=== PATIENT | male | born 1960 | race Caucasian/White ===

== ENCOUNTER 2025-07-10 08:56 | Emergency (ER) | payer OTHER, SELFPAY ==
[2025-07-10 09:12] VITALS: BP 160/74; PULSE 113; RESP 18; TEMP 36.8; O2SAT 98
--- NOTE | 2025-07-10 09:39 | ED_ITS ---
HPI - Abdominal Pain General Chief Complaint: Abdominal Pain Stated Complaint: stomach pain patient presents to the [facility] accompanied by spouse with complaints of nausea, vomiting, diarrhea after eating last night. Patient noted that through the night he woke up several times with diarrhea and nausea with vomiting. Patient does report this morning the last for episodes of diarrhea have been significant amounts of bright red blood. Patient denies any history of abdominal problems or hemorrhoids. Denies any blood in vomit. Patient does note earlier this week did have an episode of constipation and was straining significantly but this was 3-4 days ago. Patient has had but normal bowel movement since then. No one else ill after eating last night and everyone did share food. Patient does report being on Trulicity and having intermittent episodes of acid reflux but nothing significant and requiring no medication for this. No history of colonoscopy. Denies fever, chills, body aches, headache, dizziness, testicular pain, testicular swelling, back pain, or urinary symptoms Related Data Home Medications ?Medication ?Instructions ?Recorded ?Confirmed ?Last Taken ?Type amlodipine 10 mg tablet mg 07/10/25 Unknown History aspirin 81 mg tablet 81 mg PO DAILY 07/10/2506/20 Unknown History dulaglutide 4.5 mg/0.5 mL mg subcut 07/10/25 Unknown History subcutaneous pen injector (Trulicity) enalapril maleate 20 mg tablet mg 07/10/25 Unknown Hi story hydrochlorothiazide 25 mg tablet mg 07/10/25 Unknown History metformin 500 mg tablet mg 07/10/25 Unknown History metoprolol succinate 200 mg mg PO 07/10/25 Unknown Hi story tablet,extended release 24 hr rosuvastatin 20 mg tablet mg 07/10/25 Unknown History Allergies Allergy/AdvReac Type Severity Reaction Status Date / Time tetanus and diphtheria Allergy Swelling Verified 07/10/25 09:23 toxoids Penicillins AdvReac Mild Other Verified 07/10/25 09:23 Review of Systems Constitutional: Constitutional: Reports as per HPI, Denies chills, Denies fatigue, Denies fever(s) and Denies weakness Eyes: Eyes: Reports no additional eye complaints Cardiovascular: Cardiovascular: Reports no additional cardiovascular complaints Respiratory: Respiratory: Reports no additional respiratory complaints Gastrointestinal: Gastrointestinal: Reports as per HPI, Reports abdominal pain, Reports bloating, Denies constipation, Denies heartburn, Reports diarrhea, Reports nausea and Reports vomiting Comments: several episodes bright red bleeding- significant amounts Genitourinary: Genitourinary: Reports as per HPI, Denies hematuria, Denies oliguria, Denies genital lesions, Denies dysuria, Denies penile discharge, Denies testicular pain, Denies urinary frequency and Denies urinary incontinence Musculoskeletal: Musculoskeletal: Reports as per HPI, Denies back pain and Denies myalgias Integumentary/Breasts: Skin/Breast: Reports as per HPI, Denies erythema, Denies rash and Denies skin ulcer Neurologic: Reports as per HPI, Denies vertigo, Denies dizziness, Denies syncope and Denies headache(s) Psychiatric: Psychiatric: Reports no additional psychiatric complaints Endocrine: Endocrine: Reports no additional endocrine complaints Hematologic/Lymphatic: Hematologic/Lymphatic: Reports no additional hematologic/lymphatic complaints Allergic/Immunologic: Allergic/Immunologic: Reports no additional allergic/immunologic complaints Exam Const: General: healthy appearing and no acute distress Nutritional Appearance: well nourished Orientation/consciousness: patient oriented x3 Limitations: no limitations Resp: Effort & Inspection: normal respiratory effort Auscultation: clear to auscultation bilaterally Cardio: Rate: regular rate Rhythm: regular rhythm GI: Inspection: non-distended GI Palp: Yes Soft to palpation, Yes Tenderness to palpation present (GI) (generalized ), No Guarding due to palpation present (GI), No Rigid due to palpation, No Hernia present, No Palpable mass present and No Rebound tenderness present Auscultation: normal bowel sounds : General: Yes bladder normal to palpation and Yes no CVA tenderness Back/Spine/Pelvis: Back: no CVA tenderness Skin: General skin exam: normal color Rashes: no rashes Wounds: no wounds Neuro: General: patient oriented x3 Speech: normal speech Gait exam (Neuro): Normal gait present Psych: Mental Status: mental status grossly normal Affect: normal affect Attitude: cooperative Course Course Level of Care: Express Care Visit Vital Signs Vital signs: Vital Signs Temperature 98.3 F 07/10/25 09:12 Pulse Rate 113 H 07/10/25 09:12 Respiratory Rate 18 07/10/25 09:12 Blood Pressure 160/74 H 07/10/25 09:12 Pulse Oximetry 98 07/10/25 09:12 Oxygen Delivery Room Air 07/10/25 09:12 Temperature 98.3 F 07/10/25 09:12 Pulse Rate 113 H 07/10/25 09:12 Respiratory Rate 18 07/10/25 09:12 Blood Pressure 160/74 H 07/10/25 09:12 Pulse Oximetry 98 07/10/25 09:12 Oxygen Delivery Room Air 07/10/25 09:12 MDM - Abdominal Pain MDM Narrative Medical decision making narrative: noted patient does have slightly improved symptoms but given the significant amount of bright red bleeding per rectum with diarrhea and generalized abdominal pain patient should be evaluated in the emergency room. Report called to [facility] ER physician patient to be transferred by private vehicle. Recommended patient to nothing to eat or drink until evaluated in the emergen cy room Differential Diagnosis Differential diagnosis: Likely acute appendicitis, calculus of kidney, constipation, diverticulitis, gastroenteritis, small bowel obstruction and other (GI bleeding ) Medical Records Attestation: I reviewed the patient's medical records. Discharge Plan Discharge Clinical Impression: Rectal bleeding, Abdominal pain Patient Disposition: Home Condition: Stable Instructions: Antibiotic Form Patient Language: Lithuanian Prescriptions: No Action metformin 500 mg tablet enalapril maleate 20 mg tablet metoprolol succinate 200 mg tablet extended release 24 hr PO amlodipine 10 mg tablet hydrochlorothiazide 25 mg tablet rosuvastatin 20 mg tablet Trulicity 4.5 mg/0.5 mL pen injector SUBCUT aspirin 81 mg tablet 81 mg PO DAILY Follow-up/Referrals: UNKNOWN,DOCTOR [Primary Care Provider] Time of Disposition: 09:44
== END 2025-07-10 09:39 | disposition short-term general hospital (02) ==
PROVIDERS: Emergency Provider Nurse Practitioner Family
DX: K62.5 Hemorrhage of anus and rectum (principal); R10.9 Unspecified abdominal pain; Z79.82 Long term (current) use of aspirin
CPT/HCPCS: 99212; G0463

== ENCOUNTER 2025-07-10 09:54 | Observation (INO) | payer OTHER, SELFPAY ==
--- NOTE | ~2025-07-10 | CT_ITS ---
CT abdomen pelvis w con Clinical History: abdominal pain bloody diarrhea . Comparison: None Technique: Axial images lung bases to symphysis pubis IV contrast information not listed in PACS Coronal, sagittal reformats CT images acquired with automatic exposure control for dose reduction DLP: 1195 mGy-cm Findings: Lung bases: Clear. Visualized heart and pericardium: Unremarkable. Liver: Enlarged. Steatosis. Gallbladder: Unremarkable. Spleen: Unremarkable. Pancreas: Unremarkable. Adrenal glands: Unremarkable. Kidneys: Right kidney- No hydronephrosis. No renal stones. Left kidney- No hydronephrosis. No renal stones. Distal esophagus/stomach: Mild distal esophageal wall thickening/esophagitis versus sliding hernia. Small bowel loops: Normal caliber and wall thickness. Colon: Diverticula. Diffuse wall thickening distal loops. Normal RLQ appendix. Nodes: No enlarged nodes. Peritoneum: No ascites. No free air. Urinary bladder: Unremarkable. Prostate: Unremarkable. Bones: No acute bony abnormality. Soft tissues: Unremarkable. Aorta: No aneurysm or dissection. Atherosclerotic disease. IVC: Unremarkable. Main portal vein/SMV/splenic vein: Patent. IMPRESSION: 1. Long segment colitis. Infectious and/or inflammatory. Reviewed, dictated and finalized at location R. [employer]MENT [employer]NAGER
[2025-07-10 10:02] VITALS: BP 157/82; PULSE 98; RESP 17; TEMP 36.4; O2SAT 97
[2025-07-10 10:28] VITALS: PULSE 103; O2SAT 96
[2025-07-10 10:33] LABS: Add Urine Microscopic? NO; Appearance Urine Clear (Clear); Glucose Urine UA 2+ mg/dL (Negative); Hematocrit 49.9 % (42.0-52.0); Hemoglobin 16.7 g/dL (14.0-18.0); Immature Granulocyte Percent A 0.5 % (0-0.5); Leukocyte Esterase Ur Negative LEU/UL (Negative); Lymphocytes Absolute Auto 1.40 K/mm3 (0.9-3.2); Mean Corpuscular HGB Conc 33.5 g/dl (32-36); Mean Corpuscular Hemoglobin 28.1 pg (26-34); Mean Corpuscular Volume 84.0 fl (80-100); Nitrate Urine Negative (Negative); Nucleated Red Blood Cells Absolute Auto 0.000 K/mm3 (0.0-0.012); Nucleated Red Blood Cells Perc 0.0 % (0.0-0.2); Platelet Count Result 259 k/mm3 (150-375); Red Blood Count 5.94 M/mm3 (4.6-6.20); Specific Grav Ur 1.031 (1.001-1.035); White Blood Count 22.7 K/mm3 (4.5-10.0)
[2025-07-10 10:56] LABS: Alanine Aminotransferase 57 U/L (6-50); Albumin Level 4.5 g/dL (3.5-5.1); Alkaline Phosphatase 53 U/L (38-126); Anion Gap 14 mmol/L (4-12); Aspartate Amino Transferase 39 U/L (17-59); Bilirubin,Total 0.5 mg/dL (0.2-1.3); Blood Urea Nitrogen 21 mg/dL (9-20); Calcium 9.9 mg/dL (8.4-10.2); Carbon Dioxide 22 mmol/L (22-30); Chloride 99 mmol/L (98-107); Estimated CRCL calculation 100 ml/min; Estimated Glomerular Filt Rate > 60; Glucose 207 mg/dL (65-110); Lipase 49 U/L (23-300); Potassium 3.5 mmol/L (3.4-5.0); Sodium 135 mmol/L (137-145); Total Protein 7.8 g/dL (6.3-8.2)
[2025-07-10] MEDS: SODIUM CHLORIDE 0.9% IV 1,000 ML 999 ML IV CONT ×3 (10:58→12:27)
[2025-07-10] MEDS: DICYCLOMINE HCL INJ 20 MG/2 ML VIAL IM (10:58)
--- NOTE | 2025-07-10 11:33 | ED_ITS ---
HPI - General Adult General Chief complaint: Abdominal Pain Stated complaint: abd pain Time Seen by Provider: 07/10/25 10:17 History of Present Illness HPI narrative: Patient is 62-year-old gentleman presents emergency department with chief complaint of abdominal pain and bloody stool patient reports that he is visiting from [place]. Patient states that he a lot a rich food and reports that he started having diarrhea yesterday evening had multiple bouts of diarrhea has vomited a couple of times feels as though his abdomen is full and crampy the patient also reports that he started having bloody diarrhea Related Data Home Medications ?Medication ?Instructions ?Recorded ?Confirmed ?Last Taken ?Type amlodipine 10 mg tablet 10 mg PO DAILY@0800 07/10/25 07/10/25 07/10/25 History aspirin 81 mg tablet 81 mg PO DAILY 07/10/2506/2007/09/25 History dulaglutide 4.5 mg/0.5 mL 4.5 mg subcut WEEKLY 5 07/10/25 07/05/25 History subcutaneous pen injector (Trulicity) enalapril maleate 20 mg tablet 40 mg PO Q24H 07/10/25 07/10/25 07/10/25 History hydrochlorothiazide 25 mg tablet 25 mg PO DAILY@0800 1 09/09/24 07/10/25 07/10/25 History metformin 500 mg tablet 1,000 mg PO BID 07/10/2507/10/25 History metoprolol succinate 200 mg 200 mg PO DAILY@0800 07/1007/10/25 07/10/25 History tablet,extended release 24 hr rosuvastatin 20 mg tablet 20 mg PO DAILY@1700 07/10/25 07/10/25 07/09/25 History Allergies Allergy/AdvReac Type Severity Reaction Status Date / Time tetanus and diphtheria Allergy Swelling Verified 07/10/25 09:55 toxoids Penicillins AdvReac Mild Other Verified 07/10/25 09:55 Review of Systems 2 Review of Systems: A 10 system review of systems was completed on the patient and is negative except for what is stated in the HPI. Nursing and ancillary documentation was reviewed. Exam 2 Narrative: GENERAL: Well-appearing, well-nourished, and in no acute distress. HEAD: Normocephalic, atraumatic. EYES: PERRLA and EOMI. ENT: Nares clear, no rhinorrhea or epistaxis. Mucous membranes moist. NECK: Supple. CHEST: Clear to auscultation. No respiratory distress. HEART: Regular rate and rhythm. No murmur heard. Normal peripheral pulses. ABDOMEN: Soft, nontender, nondistended, normal active bowel sounds. EXTREMITIES: Normal range of motion. No edema. SKIN: Warm, dry, no rash. NEURO: No focal deficits. Alert and oriented x3. PSYCH: Normal mood and affect. Course Vital Signs Vital signs: Vital Signs Temperature 36.4 C 07/10/25 10:02 Pulse Rate 98 07/10/25 10:02 Respiratory Rate 17 07/10/25 10:02 Blood Pressure 157/82 H 07/10/25 10:02 Pulse Oximetry 97 07/10/25 10:02 Temperature 36.4 C 07/10/25 10:02 Pulse Rate 71 07/10/25 12:01 Respiratory Rate 18 07/10/25 12:01 Blood Pressure 157/89 H 07/10/25 12:01 Pulse Oximetry 98 07/10/25 12:[address] [facility] Narrative Medical decision making narrative: Differential diagnosis colitis, diverticulitis, intra-abdominal abscess, Laboratory studies were obtained showed a white count of 22.7 CMP showed an anion gap of 14 BUN of 21 glucose 207 lactate was 4.1 bilirubin is normal at 0.5 lipase was normal at 49 urinalysis showed trace ketones CT scan of the abdomen pelvis showed 1. Long segment colitis. Infectious and/or inflammatory. Patient has a penicillin allergy and was started on cefepime and Flagyl 30 per kilos normal saline boluses were ordered for the patient Plan will be to admit the patient to the hospitalist for further care Vital Signs Vital Signs: Vital Signs Temperature 36.4 C 07/10/25 10:02 Pulse Rate 98 07/10/25 10:02 Respiratory Rate 17 07/10/25 10:02 Blood Pressure 157/82 H 07/10/25 10:02 Pulse Oximetry 97 07/10/25 10:02 Temperature 36.4 C 07/10/25 10:02 Pulse Rate 71 07/10/25 12:01 Respiratory Rate 18 07/10/25 12:01 Blood Pressure 157/89 H 07/10/25 12:01 Pulse Oximetry 98 07/10/25 12:01 Lab Data 07/10/25 10:20 07/10/25 10:20 Labs: Lab Results 07/10/25 07/10/25 Range/Units 10:20 11:03 WBC 22.7 H (4.5-10.0) K/mm3 RBC 5.94 (4.6-6.20) M/mm3 Hgb 16.7 (14.0-18.0) g/dL Hct 49.9 (42.0-52.0) % MCV 84.0 (80-100) fl MCH 28.1 (26-34) pg MCHC 33.5 (32-36) g/dl RDW 14.0 (11.5-14.5) % Plt Count 259 (150-375) k/mm3 MPV 9.4 (7.4-10.4) fl Immature Gran % (Auto) 0.5 (0-0.5) % Neut % (Auto) 87.1 H (45.5-73.1) % Lymph % (Auto) 6.2 L (18.3-44.2) % [place] % (Auto) 5.9 (2.6-8.5) % Eos % (Auto) 0.0 (0-4.4) % Baso % (Auto) 0.3 (0.2-1.2) % Lymph # (Auto) 1.40 (0.9-3.2) K/mm3 [place] # (Auto) 1.3 H (0.1-0.6) K/mm3 Eos # (Auto) 0.0 (0-0.3) K/mm3 Baso # (Auto) 0.1 (0.0-0.1) K/mm3 Abs Immat Gran (auto) 0.11 H (0.00-0.031) K/mm3 Absolute Neuts (auto) 19.7 H (1.3-6.7) K/mm3 Absolute Nucleated RBC 0.000 (0.0-0.012) K/mm3 Nucleated RBC % 0.0 (0.0-0.2) % Sodium 135 L (137-145) mmol/L Potassium 3.5 (3.4-5.0) mmol/L Chloride 99 (98-107) mmol/L Carbon Dioxide 22 (22-30) mmol/L Anion Gap 14 H (4-12) mmol/L BUN 21 H (9-20) mg/dL Creatinine 0.83 (0.7-1.3) mg/dL Estim Creat Clear Calc 100 ml/min Estimated GFR > 60 (59 - ) Glucose 207 H (65-110) mg/dL Lactic Acid 4.1 H* (0.7-2.0) mmol/L Calcium 9.9 (8.4-10.2) mg/dL Total Bilirubin 0.5 (0.2-1.3) mg/dL AST 39 (17-59) U/L ALT 57 H (6-50) U/L Alkaline Phosphatase 53 (38-126) U/L Total Protein 7.8 (6.3-8.2) g/dL Albumin 4.5 (3.5-5.1) g/dL Lipase 49 (23-300) U/L Urine Color Yellow (Yellow) Urine Appearance Clear (Clear) Urine pH 5.0 (5.0-9.0) Ur Specific [place] 1.031 (1.001-1.035) Urine Protein Negative (Negative) mg/dL Urine Glucose (UA) 2+ H (Negative) mg/dL Urine Ketones Trace H (Negative) mg/dL Ur Blood (Man) Negative (Negative) Urine Nitrate Negative (Negative) Urine Bilirubin Negative (Negative) Urine Urobilinogen 0.2 (<2.0) mg/dL Leukocyte Esterase Rfl Negative (Negative) EDWARD/UL Discharge Plan Discharge Clinical Impression: Colitis Patient Disposition: Still a Patient Condition: Stable Instructions: Antibiotic Form Patient Language: Prydeinig Prescriptions: No Action metformin 500 mg tablet 1,000 mg PO BID enalapril maleate 20 mg tablet 40 mg PO Q24H metoprolol succinate 200 mg tablet extended release 24 hr 200 mg PO DAILY@0800 amlodipine 10 mg tablet 10 mg PO DAILY@0800 hydrochlorothiazide 25 mg tablet 25 mg PO DAILY@0800 rosuvastatin 20 mg tablet 20 mg PO DAILY@1700 Trulicity 4.5 mg/0.5 mL pen injector 4.5 mg SUBCUT WEEKLY aspirin 81 mg tablet 81 mg PO DAILY Follow-up/Referrals: UNKNOWN,DOCTOR [Primary Care Provider] Time of Disposition: 12:04
[2025-07-10] MEDS: CEFEPIME 2 GM in SODIUM CHLORIDE 0.9% IV 50 ML 100 ML IVPB ×2 (11:51→21:42)
[2025-07-10 12:01] VITALS: BP 157/89; PULSE 71; RESP 18; O2SAT 98
--- NOTE | 2025-07-10 12:15 | P.HP_ITS ---
H&P: HPI History of Present Illness Date/Time: 07/10/25 12:15 Chief Complaint: Abdominal Pain, Blood in Stool Narrative: 64 y/o M with PMH of HTN, HLD, and DM presents here with abdominal pain and blood in his stool. The patient presents here from a local urgent care on 07/10 for further evaluation of a town pain and blood in his stool. He reports onset of symptoms yesterday (07/09). He describes the abdominal pain as diffuse, cramping/fullness, and nonradiating. Pain was accompanied by diarrhea. He reports since onset he has had approximately 4-5 stools. He describes these as large volume initially but have tapered down to smaller volumes. He reports he then developed bloody diarrhea around 2 a.m. which he described as bright red blood and fibrous. He reports accompanying abdominal fullness. Denies fever, chills, body aches. No prior history of hematochezia/melena. Not on anticoagulation, does take a daily ASA. Has never had a colonoscopy or Cologuard before, has been offered to him by his primary. Denies history of ulcerative colitis or Crohn's. No FH of colon cancer. Initial VS at presentation: 97.6? F, HR 98, R 17, 157/82, and 97% on RA. ED workup showed: WBC 22.7, no anemia, sodium 135, creatinine 0.83 and GFR >60, glucose 207, lactic 4.1, ALT 57, normal lipase, and UA showed 2+ glucose and trace ketones. CT of the abdomen/pelvis showed long segment colitis, infectious and/or inflammatory. Review of Systems Review of Systems: All systems reviewed & are unremarkable except as noted in HPI and below PMFSH Past Medical History Medical History DM2 (diabetes mellitus, type 2) HLD (hyperlipidemia) HTN (hypertension) Meds Home Medications and Allergies Home Medications ?Medication ?Instructions ?Recorded ?Confirmed ?Type amlodipine 10 mg tablet 10 mg PO DAILY@0800 07/10/25 07/10/25 History aspirin 81 mg tablet 81 mg PO DAILY 07/10/2506/20 History dulaglutide 4.5 mg/0.5 mL 4.5 mg subcut WEEKLY 5 07/10/25 History subcutaneous pen injector (Trulicity) enalapril maleate 20 mg tablet 40 mg PO Q24H 07/10/25 07/10/25 History hydrochlorothiazide 25 mg tablet 25 mg PO DAILY@0800 1 09/09/24 07/10/25 History metformin 500 mg tablet 1,000 mg PO BID 07/10/25 History metoprolol succinate 200 mg 200 mg PO DAILY@0800 07/1007/10/25 History tablet,extended release 24 hr rosuvastatin 20 mg tablet 20 mg PO DAILY@1700 07/10/25 07/10/25 History Allergies Allergy/AdvReac Type Severity Reaction Status Date / Time tetanus and diphtheria Allergy Swelling Verified 07/10/25 09:55 toxoids Penicillins AdvReac Mild Other Verified 07/10/25 09:55 Vital Signs Vital Signs - 24 hr 07/10/25 10:02 07/10/25 10:28 07/10/25 12:01 Temperature 97.6 F Pulse Rate 98 103 H 71 Respiratory Rate 17 18 Blood Pressure 157/82 H 157/89 H Pulse Oximetry 97 96 98 Exam Const: General: comfortable and no acute distress Other: , male, nontoxic appearance, obese body habitus HENMT: Face/Nose/Sinus: Normal nares present Mouth: Yes moist mucous membranes Eyes: General: appearance normal, both eyes and all related structures Sclera: sclerae normal Pupils: Equal, round and reactive pupils present EOM: EOMs intact bilaterally Resp: Effort & Inspection: normal respiratory effort Auscultation: clear to auscultation bilaterally Cardio: Rate: regular rate Rhythm: regular rhythm Other: S1-S2 present without murmur, rub, ectopy GI: Other: Abdomen full, currently nontender. Normoactive bowel sounds in all quadrants. Skin: General skin exam: normal color and no rashes or lesions noted Wounds: no wounds Neuro: Speech: normal speech Motor exam (neuro): 5/5 motor strength present throughout Sensory Exam: normal sensation Other: A&O x4 Extrem: General: normal to inspection Psych: Mental Status: mental status grossly normal Affect: normal affect Other: Good insight and judgment, very pleasant H&P: Results Labs Labs: Short CBC 07/10/25 Range/Units 10:20 WBC 22.7 H (4.5-10.0) K/mm3 Hgb 16.7 (14.0-18.0) g/dL Hct 49.9 (42.0-52.0) % Plt Count 259 (150-375) k/mm3 BMP 07/10/25 10:20 Sodium 135 L Potassium 3.5 Chloride 99 Carbon Dioxide 22 BUN 21 H Creatinine 0.83 Glucose 207 H Calcium 9.9 Liver Function 07/10/25 Range/Units 10:20 Total Bilirubin 0.5 (0.2-1.3) mg/dL AST 39 (17-59) U/L ALT 57 H (6-50) U/L Alkaline Phosphatase 53 (38-126) U/L Albumin 4.5 (3.5-5.1) g/dL Urine 07/10/25 Range/Units 10:20 Urine Color Yellow (Yellow) Urine Appearance Clear (Clear) Urine pH 5.0 (5.0-9.0) Ur Specific [place] 1.031 (1.001-1.035) Urine Protein Negative (Negative) mg/dL Urine Glucose (UA) 2+ H (Negative) mg/dL Assessment and Plan Assessment and plan (1) Sepsis: Qualifiers: Sepsis acute organ dysfunction status: without acute organ dysfunction Sepsis type: sepsis due to unspecified organism Qualified Code(s): A41.9 - Sepsis, unspecified organism Code(s): A41.9 - Sepsis, unspecified organism Status: Acute Assessment and Plan: Patient met sepsis criteria. HR greater than 90, WBC greater than 14. Initial lactic 4.1. No hypotension, renal failure, or hypoxia noted. Extremities well perfused on exam. Imaging/workup concerning for colitis. - lactic 4.1, trend down and at procalcitonin - review UA, no indicators of infection - WBC 22.7 upon admission, trend - 2L bolus given in ED, give 3rd L at 100 mL/hr - started on broad spectrum antibiotics for colitis: Cefepime and Flagyl - blood cultures obtained on 07/10, follow - monitor hemodynamic stability (2) Colitis: Code(s): K52.9 - Noninfective gastroenteritis and colitis, unspecified Status: Acute Assessment and Plan: Reports general improvement since arrival with IV fluids and medications in the ED. - CT abd/pelvis: Long segment colitis. Infectious and/or inflammatory. - started on Cefepime + Metronidazole on 07/10, continued inpatient - IV fluids: 2L bolus, now on 100 mL/hr x1L - clear liquid diet - pain medication prn - daily clinical reassessment for improvement - accompanying blood in stool, see below (3) Rectal bleeding: Code(s): K62.5 - Hemorrhage of anus and rectum Status: Acute Assessment and Plan: Reported rectal bleeding with onset within the last 24 hours. No previous history of melena/hematochezia. Last colonoscopy? Hemoglobin currently stable. Hemodynamically stable. Suspect new rectal bleeding secondary to colitis, however patient has long segment colitis. - check coags - monitor H/H, trasnfuse if <7 - GI consulted (4) DM2 (diabetes mellitus, type 2): Qualifiers: Diabetes mellitus complication status: with hyperglycemia Diabetes mellitus long filler cigar roller machine insulin use: without long filler cigar roller machine use Qualified Code(s): E11.65 - Type 2 diabetes mellitus with hyperglycemia Code(s): E11.9 - Type 2 diabetes mellitus without complications Status: Chronic Assessment and Plan: - hypoglycemia protocol - POC blood glucose ACHS - home medication: Hold metformin in case of need for contrast - correct regimen ordered - high dose TIDWM, based off BMI (5) HTN (hypertension): Qualifiers: Hypertension type: primary hypertension Qualified Code(s): I10 - Essential (primary) hypertension Code(s): I10 - Essential (primary) hypertension Status: Chronic Assessment and Plan: - chronic, currently 157/89, stable. - continue home medications: Amlodipine, enalapril, hydrochlorothiazide, metoprolol - monitor Plan Diet: clear liquid GI Prophylaxis: pantoprazole IV daily DVT Prophylaxis: SCDs IV fluids: 2L -> 100 mL/hr x1L Lines/Tubes: pIV Code Status: full code Quality VTE Prophylaxis VTE prophylaxis: mechanical ordered Hospitalist [facility] Advance Care Plan I have confirmed that the patient's Advanced Care Plan is present, code status is documented, or surrogate decision maker is listed in patient medical record.: Yes Medication Reconciliation I have utilized all available resources to obtain, update and review the patients current medications (includes all prescriptions, OTC, herbals, cannabis, and nutritional supplements).: Yes
[2025-07-10] MEDS: metroNIDAZOLE 500 MG/ISO 100ML 500 MG/100 ML BAG 100 MG IVPB ×2 (12:28→22:48)
[2025-07-10 12:30] LABS: Magnesium 1.7 mg/dL (1.6-2.3)
[2025-07-10] MEDS: PANTOPRAZOLE SODIUM IV 40 MG VIAL IV PUSH (13:00)
[2025-07-10 13:01] LABS: INR 0.9; Partial Thromboplastin Time 23.6 Seconds (22.3-36.8); Prothrombin Time 12.8 Seconds (11.1-14.7)
[2025-07-10 13:07] VITALS: BP 146/80; PULSE 83; RESP 19; O2SAT 97
--- NOTE | 2025-07-10 13:08 | WPCEDHO ---
ED Hand Off Checklist All vitals saved:y IV Site documented:y All med administrations documented:y Triage Note Triage Note Pt to the ED from urgent care 07/10/25 09:57 with c/o abd pain and blood in stool. Pt states he had n/v/d last night and had blood in his stool this morning. Allergies tetanus and diphtheria toxoids Allergy (Verified 07/10/25 09:55) Swelling Penicillins Adverse Reaction (Mild, Verified 07/10/25 09:55) Other familail rxn Active Medications including assessments/comments Insulin Aspart (Insulin Aspart (*Bkc) 100 Units/Ml) 4 - 8 units SUB-Q TIDWM [facility]; Protocol Last Admin: 07/10/25 12:46 Dose: Not Given Documented By: WALE Non-Admin Reason: blood glucose 151 MAR Blood Glucose Document 07/10/25 12:46 WALE (Rec: 07/10/25 12:46 WALE [id number]) Bedside Glucose Verified Glucose Results Yes Verified Pantoprazole Sodium (Pantoprazole Sodium Iv 40 Mg Vial) 40 mg IV PUSH QAM [facility] Last Admin: 07/10/25 13:00 Dose: 40 mg Documented By: WALE Administered/Completed Medications Discontinued Medications Dicyclomine HCl (Dicyclomine Hcl Inj 20 Mg/2 Ml Vial) 20 mg IM ONCE STA Stop: 07/10/25 10:41 Last Admin: 07/10/25 10:58 Dose: 20 mg Documented By: WALE Sodium Chloride (Normal Saline Iv) 1,000 mls @ 999 mls/hr IV CONT .Q1H1M STA Stop: 07/10/25 11:40 Last Infusion: 07/10/25 11:59 Dose: Infused Documented By: Admin: 07/10/25 10:58 Dose: 999 mls/hr Documented By: WALE Sodium Chloride (Normal Saline Iv) 1,000 mls @ 999 mls/hr IV CONT .Q1H1M STA Stop: 07/10/25 12:25 Last Infusion: 07/10/25 13:01 Dose: Infused Documented By: Admin: 07/10/25 11:51 Dose: 999 mls/hr Documented By: WALE Sodium Chloride (Normal Saline Iv) 1,000 mls @ 999 mls/hr IV CONT .Q1H1M STA Stop: 07/10/25 12:25 Last Admin: 07/10/25 12:27 Dose: 999 mls/hr Documented By: WALE Cefepime HCl 2 gm/ Sodium (Chloride) 50 mls @ 100 mls/hr IVPB ONCE STA Stop: 07/10/25 11:54 Last Infusion: 07/10/25 12:26 Dose: Infused Documented By: Admin: 07/10/25 11:51 Dose: 100 mls/hr Documented By: WALE Metronidazole (Flagyl 500 Mg/Iso Soln 100 Ml) 500 mg in 100 mls @ 100 mls/hr IVPB ONCE STA Stop: 07/10/25 12:24 Last Admin: 07/10/25 12:28 Dose: 100 mls/hr Documented By: WALE Interventions/Assessments IV / Saline Lock, Insert Start: 07/10/25 10:02 Freq: STAT Status: Active Protocol: Document 07/10/25 10:21 WALE (Rec: 07/10/25 10:21 WALE [id number]) IV Assessment Peripheral Access Left Forearm IV Catheter Access Initiated IV Insertion Date 07/10/25 IV Insertion Time 10:21 Catheter Gauge 18 IV Insertion 1 Attempts Ultrasound Used for No Placement IV Site Assessment WNL IV Care and WNL Maintenance PA: Gastrointestinal Assessment Start: 07/10/25 09:55 Freq: Status: Active Protocol: Document 07/10/25 12:01 WALE (Rec: 07/10/25 12:02 WALE [id number]) GI Assessment Gastrointestinal Blood in Stool,Cramping,Diarrhea,Nausea,Pain Symptoms Description Soft Flatus Present Last Vital Signs Temperature 97.6 F 07/10/25 10:02 Pulse Rate 83 07/10/25 13:07 Respiratory Rate 19 07/10/25 13:07 Pulse Oximetry 97 07/10/25 13:07 Blood Pressure 146/80 H 07/10/25 13:07 Blood Pressure Mean 102 07/10/25 13:07 Blood Pressure Position Sitting 07/10/25 10:02 Weight 113 kg 07/10/25 09:57 Last Result - Abnormals Only WBC 22.7 K/mm3 (4.5-10.0) H 07/10/25 10:20 Neut % (Auto) 87.1 % (45.5-73.1) H 07/10/25 10:20 Lymph % (Auto) 6.2 % (18.3-44.2) L 07/10/25 10:20 [place] # (Auto) 1.3 K/mm3 (0.1-0.6) H 07/10/25 10:20 Abs Immat Gran (auto) 0.11 K/mm3 (0.00-0.031) H 07/10/25 10:20 Absolute Neuts (auto) 19.7 K/mm3 (1.3-6.7) H 07/10/25 10:20 Sodium 135 mmol/L (137-145) L 07/10/25 10:20 Anion Gap 14 mmol/L (4-12) H 07/10/25 10:20 BUN 21 mg/dL (9-20) H 07/10/25 10:20 Glucose 207 mg/dL (65-110) H 07/10/25 10:20 POC Capillary Glucose 151 mg/dl (65-105) H 07/10/25 12:45 Lactic Acid 4.1 mmol/L (0.7-2.0) H* 07/10/25 11:03 ALT 57 U/L (6-50) H 07/10/25 10:20 Urine Glucose (UA) 2+ mg/dL (Negative) H 07/10/25 10:20 Urine Ketones Trace mg/dL (Negative) H 07/10/25 10:20 Most Recent Suicide Severity Rating Suicide Severity Rating NO RISK INDICATED 07/10/25 09:57
[2025-07-10 13:12] LABS: Procalcitonin 0.1 ng/mL
--- NOTE | 2025-07-10 13:46 | ADMGEN ---
This patient, Nomi Mohr, was admitted to Medical Room 340-01. Patient/family oriented to hospital policies and general routines including ID bracelet, bed and alarms, visiting hours, pain management, procedures, bathroom and other care routines, personal items, smoking policy, room service/diet, and visiting hours. Information on how to activate the Rapid Response Team has been discussed. Patient/Family are encouraged to report perceived risks to care and to ask questions if they do not understand what they are told or what they should do.
[2025-07-10 14:06] VITALS: BP 157/77; PULSE 82; RESP 20; TEMP 37.1; O2SAT 99; BMI 36.8
[2025-07-10] MEDS: LACTATED RINGERS 1,000 ML 100 ML IV CONT (14:08)
--- NOTE | 2025-07-10 14:28 | WPDGICN ---
Assessment and Plan Assessment and plan (1) Colitis: Code(s): K52.9 - Noninfective gastroenteritis and colitis, unspecified Status: Acute Assessment and Plan: could be infectious or ischemic however he is already feeling much better right now continue with fluids, antibiotic empirically but get stool culture on liquid diet elevated lactic acid- will expect to normalize after medical treatment since he is already doing much better but monitor hopefully home tomorrow if better recommend to get colonoscopy in about 4 weeks after resolution of colitis, he will contact his PCP to get a referral since he is out of town will follow (2) Abdominal pain: Code(s): R10.9 - Unspecified abdominal pain Status: Acute (3) Rectal bleeding: Code(s): K62.5 - Hemorrhage of anus and rectum Status: Acute (4) Sepsis: Qualifiers: Sepsis type: sepsis due to unspecified organism Sepsis acute organ dysfunction status: without acute organ dysfunction Qualified Code(s): A41.9 - Sepsis, unspecified organism Code(s): A41.9 - Sepsis, unspecified organism Status: Acute (5) Leukocytosis: Code(s): D72.829 - Elevated white blood cell count, unspecified Status: Acute GI Consult Note Consult date/time: 07/10/25 14:28 Reason for consult: colitis HPI: Nomi Mohr is a 64 year old male with history of HTN, HLD, and DM here with new onset of abdominal pain and blood in his stool. He is from out of town visiting family for the holidays and they celebrated Thanksgiving with dinner then with abdominal cramping, diarrhea and n/v x1. He went to local urgent care but then noted blood in stools with more pain, describes as diffuse, cramping/fullness, and nonradiating. Also had abdominal fullness. Denies fever, chills, body aches. No previous history of gib or colitis, never had colonoscopy. ED workup showed: WBC 22.7, no anemia, sodium 135, creatinine 0.83, glucose 207, lactic 4.1, ALT 57, normal lipase, and UA showed 2+ glucose and trace ketones. CT of the abdomen/pelvis showed long segment colitis, infectious and/or inflammatory. Given iv fluids, abx and pain meds. Right now he is very comfortable, no more pain and doing better. Family at bedside. He is the only one sick in family. Review of Systems Constitutional: Constitutional: Denies chills Eyes: Eyes: Denies blurry vision ENT: Reports Normal hearing present Cardiovascular: Cardiovascular: Denies chest pain Respiratory: Respiratory: Denies cough Gastrointestinal: Gastrointestinal: Reports abdominal pain, Reports hematochezia, Reports nausea and Reports vomiting Genitourinary: Genitourinary: Denies dysuria Musculoskeletal: Musculoskeletal: Denies neck pain Integumentary/Breasts: Skin/Breast: Denies rash Neurologic: Denies Abnormal speech present Psychiatric: Psychiatric: Denies behavioral changes [facility] Past Medical History Medical History (Updated 07/10/25 @ 14:34 by Chintan Lizama MD) Leukocytosis DM2 (diabetes mellitus, type 2) HLD (hyperlipidemia) HTN (hypertension) Meds Home Medications and Allergies Home Medications ?Medication ?Instructions ?Recorded ?Confirmed ?Type amlodipine 10 mg tablet 10 mg PO DAILY@0800 07/10/25 07/10/25 History aspirin 81 mg tablet 81 mg PO DAILY 07/10/25 07/10/25 History dulaglutide 4.5 mg/0.5 mL 4.5 mg subcut WEEKLY 07/10/25 07/10/25 History subcutaneous pen injector (Trulicity) enalapril maleate 20 mg tablet 40 mg PO Q24H 07/10/25 07/10/25 History hydrochlorothiazide 25 mg tablet 25 mg PO DAILY@0800 07/10/25 07/10/25 History metformin 500 mg tablet 1,000 mg PO BID 07/10/25 07/10/25 History metoprolol succinate 200 mg 200 mg PO DAILY@0800 07/10/25 07/10/25 History tablet,extended release 24 hr rosuvastatin 20 mg tablet 20 mg PO DAILY@1700 07/10/25 07/10/25 History Allergies Allergy/AdvReac Type Severity Reaction Status Date / Time tetanus and diphtheria Allergy Swelling Verified 07/10/25 14:22 toxoids Penicillins AdvReac Mild Other Verified 07/10/25 14:22 Vital Signs Vital Signs - 24 hr 07/10/25 10:02 07/10/25 10:28 07/10/25 12:01 Temperature 97.6 F Pulse Rate 98 103 H 71 Respiratory Rate 17 18 Blood Pressure 157/82 H 157/89 H Pulse Oximetry 97 96 98 07/10/25 13:07 07/10/25 14:06 Temperature 98.7 F Pulse Rate 83 82 Respiratory Rate 19 20 Blood Pressure 146/80 H 157/77 H Pulse Oximetry 97 99 Exam Const: General: comfortable and no acute distress HENMT: Face/Nose/Sinus: Normal nares present Eyes: General: appearance normal, both eyes and all related structures Neck: Neck: supple Resp: Auscultation: clear to auscultation bilaterally Cardio: Rate: regular rate Rhythm: regular rhythm GI: Inspection: non-distended GI Palp: Yes Soft to palpation and No Guarding due to palpation present (GI) Auscultation: normal bowel sounds Skin: General skin exam: normal color Neuro: Speech: normal speech Motor exam (neuro): 5/5 motor strength present throughout Extrem: General: normal to inspection Psych: Mental Status: mental status grossly normal Results Labs 07/10/25 10:20 07/10/25 10:20 Labs: Short CBC 07/10/25 Range/Units 10:20 WBC 22.7 H (4.5-10.0) K/mm3 Hgb 16.7 (14.0-18.0) g/dL Hct 49.9 (42.0-52.0) % Plt Count 259 (150-375) k/mm3 BMP 07/10/25 10:20 Sodium 135 L Potassium 3.5 Chloride 99 Carbon Dioxide 22 BUN 21 H Creatinine 0.83 Glucose 207 H Calcium 9.9 Liver Function 07/10/25 Range/Units 10:20 Total Bilirubin 0.5 (0.2-1.3) mg/dL AST 39 (17-59) U/L ALT 57 H (6-50) U/L Alkaline Phosphatase 53 (38-126) U/L Albumin 4.5 (3.5-5.1) g/dL Urine 07/10/25 Range/Units 10:20 Urine Color Yellow (Yellow) Urine Appearance Clear (Clear) Urine pH 5.0 (5.0-9.0) Ur Specific [place] 1.031 (1.001-1.035) Urine Protein Negative (Negative) mg/dL Urine Glucose (UA) 2+ H (Negative) mg/dL
[2025-07-10] MEDS: ROSUVASTATIN 20 MG TABLET PO (17:20)
[2025-07-10] MEDS: HYDROcodone/acetaminophen (*CRX) 5-325 MG TABLET 1 TAB PO (20:13)
[2025-07-10 20:18] VITALS: BP 151/81; PULSE 75; RESP 18; TEMP 36.8; O2SAT 97
[2025-07-11 04:59] VITALS: BP 142/81; PULSE 74; RESP 18; TEMP 36.9; O2SAT 96
[2025-07-11] MEDS: metroNIDAZOLE 500 MG/ISO 100ML 500 MG/100 ML BAG 100 MG IVPB (05:03)
[2025-07-11 05:19] LABS: Hematocrit 43.8 % (42.0-52.0); Hemoglobin 14.7 g/dL (14.0-18.0); Immature Granulocyte Percent A 0.6 % (0-0.5); Lymphocytes Absolute Auto 1.95 K/mm3 (0.9-3.2); Mean Corpuscular HGB Conc 33.6 g/dl (32-36); Mean Corpuscular Hemoglobin 28.3 pg (26-34); Mean Corpuscular Volume 84.4 fl (80-100); Nucleated Red Blood Cells Absolute Auto 0.000 K/mm3 (0.0-0.012); Nucleated Red Blood Cells Perc 0.0 % (0.0-0.2); Platelet Count Result 216 k/mm3 (150-375); Red Blood Count 5.19 M/mm3 (4.6-6.20); White Blood Count 16.1 K/mm3 (4.5-10.0)
[2025-07-11 05:36] LABS: Alanine Aminotransferase 28 U/L (6-50); Albumin Level 3.4 g/dL (3.5-5.1); Alkaline Phosphatase 46 U/L (38-126); Anion Gap 7 mmol/L (4-12); Aspartate Amino Transferase 20 U/L (17-59); Bilirubin,Total 0.9 mg/dL (0.2-1.3); Blood Urea Nitrogen 10 mg/dL (9-20); Calcium 8.9 mg/dL (8.4-10.2); Carbon Dioxide 26 mmol/L (22-30); Chloride 99 mmol/L (98-107); Estimated CRCL calculation 112 ml/min; Estimated Glomerular Filt Rate > 60; Glucose 137 mg/dL (65-110); Magnesium 1.7 mg/dL (1.6-2.3); Potassium 3.6 mmol/L (3.4-5.0); Sodium 132 mmol/L (137-145); Total Protein 6.3 g/dL (6.3-8.2)
[2025-07-11] MEDS: CEFEPIME 2 GM in SODIUM CHLORIDE 0.9% IV 50 ML 100 ML IVPB (06:37)
--- NOTE | 2025-07-11 07:25 | P.PNIM_ITS ---
Progress Note: A&P Assessment and Plan (1) Sepsis: Qualifiers: Sepsis type: sepsis due to unspecified organism Sepsis acute organ dysfunction status: without acute organ dysfunction Qualified Code(s): A41.9 - Sepsis, unspecified organism Code(s): A41.9 - Sepsis, unspecified organism Status: Acute Assessment and Plan: Patient met sepsis criteria. HR greater than 90, WBC greater than 14. Initial lactic 4.1. No hypotension, renal failure, or hypoxia noted. Extremities well perfused on exam. Imaging/workup concerning for colitis. * Lactic acid improving, 4.1 -> 3.2 * UA not indicative of infection * 2L bolus given in ED, give 3rd L at 100 mL/hr * started on broad spectrum antibiotics for colitis: Cefepime and Flagyl * blood cultures obtained on 07/10, follow * monitor hemodynamic stability * WBC improving, down from 22.7 -> 16.1 (2) Colitis: Code(s): K52.9 - Noninfective gastroenteritis and colitis, unspecified Status: Acute Assessment and Plan: Reports general improvement since arrival with IV fluids and medications in the ED. * CT abd/pelvis: Long segment colitis. Infectious and/or inflammatory. * started on Cefepime + Metronidazole on 07/10, continued inpatient * IV fluids: 2L bolus, now on 100 mL/hr x1L * clear liquid diet * pain medication prn * daily clinical reassessment for improvement * accompanying blood in stool, see below * GI consulted (3) Rectal bleeding: Code(s): K62.5 - Hemorrhage of anus and rectum Status: Inactive Assessment and Plan: Reported rectal bleeding with onset within the last 24 hours. No previous history of melena/hematochezia. Last colonoscopy? Hemoglobin currently stable. Hemodynamically stable. Suspect new rectal bleeding secondary to colitis, however patient has long segment colitis. 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 technician use Diabetes mellitus complication status: with hyperglycemia Qualified Code(s): E11.65 - Type 2 diabetes mellitus with hyperglycemia Code(s): E11.9 - Type 2 diabetes mellitus without complications Status: Chronic Assessment and Plan: - hypoglycemia protocol - POC blood glucose ACHS - home medication: Hold metformin in case of need for contrast - correct regimen ordered - high dose TIDWM, based off BMI (5) HTN (hypertension): Qualifiers: Hypertension type: primary hypertension Qualified Code(s): I10 - Essential (primary) hypertension Code(s): I10 - Essential (primary) hypertension Status: Chronic Assessment and Plan: - chronic, currently 157/89, stable. - continue home medications: Amlodipine, enalapril, hydrochlorothiazide, metoprolol - monitor Plan Diet: clear liquid GI Prophylaxis: pantoprazole IV daily DVT Prophylaxis: SCDs IV fluids: 2L -> 100 mL/hr x1L Lines/Tubes: pIV Code Status: full code Subjective Date/time seen: 07/11/25 07:25 Interval history: 64 y/o M with PMH of HTN, HLD, and DM presents here with abdominal pain and blood in his stool. 07/11/2025 Review of Systems Review of Systems: All systems reviewed & are unremarkable except as noted in HPI and below Exam Const: General: comfortable and no acute distress Other: , male, nontoxic appearance, obese body habitus HENMT: Face/Nose/Sinus: Normal nares present Mouth: Yes moist mucous membranes Eyes: General: appearance normal, both eyes and all related structures Sclera: sclerae normal Pupils: Equal, round and reactive pupils present EOM: EOMs intact bilaterally Resp: Effort & Inspection: normal respiratory effort Auscultation: clear to auscultation bilaterally Cardio: Rate: regular rate Rhythm: regular rhythm Other: S1-S2 present without murmur, rub, ectopy GI: Other: Abdomen full, currently nontender. Normoactive bowel sounds in all quadrants. Skin: General skin exam: normal color and no rashes or lesions noted Wounds: no wounds Neuro: Cranial nerves: Yes Equal, round and reactive pupils present Speech: normal speech Motor exam (neuro): 5/5 motor strength present throughout Sensory Exam: normal sensation Other: A&O x4 Extrem: General: normal to inspection Psych: Mental Status: mental status grossly normal Affect: normal affect Other: Good insight and judgment, very pleasant Objective Data Vital Signs Vital Signs: Vital Signs - 24 hr 07/10/25 10:02 07/10/25 10:28 07/10/25 12:01 Temperature 97.6 F Pulse Rate 98 103 H 71 Respiratory Rate 17 18 Blood Pressure 157/82 H 157/89 H Pulse Oximetry 97 96 98 Oxygen Delivery 07/10/25 13:07 07/10/25 14:06 07/10/25 20:00 Temperature 98.7 F Pulse Rate 83 82 Respiratory Rate 19 20 Blood Pressure 146/80 H 157/77 H Pulse Oximetry 97 99 Oxygen Delivery Room Air 07/10/25 20:18 07/11/25 04:59 Temperature 98.2 F 98.4 F Pulse Rate 75 74 Respiratory Rate 18 18 Blood Pressure 151/81 H 142/81 H Pulse Oximetry 97 96 Oxygen Delivery Intake/Output Intake/Output: Intake & Output 07/08/25 07/09/25 07/10/25 07/11/25 23:59 23:59 23:59 23:59 Intake Total 4300 250 Output Total 2 Balance 4300 248 Meds/Results Medications: Active Medications Generic Name Dose Route Start Last Admin Trade Name Freq PRN Reason Stop Dose Admin Acetaminophen 650 mg 07/10/25 12:14 Acetaminophen 325 Mg Tablet PO Q4H PRN Mild Pain (1-3) or Fever Hydrocodone Bitart/Acetaminophen 1 tab 07/10/25 12:14 07/10/25 20:13 Hydrocodone/Acetaminophen (*Crx) 5-325 Mg Tablet PO 1 tab Q4H PRN Administration Moderate Pain (4-6) Amlodipine Besylate 10 mg 07/11/25 08:00 Amlodipine Besylate 10 Mg Tablet PO DAILY@0800 [facility] Aspirin 81 mg 07/11/25 09:00 Aspirin 81 Mg Enteric Tablet PO QAM [facility] Dextrose 12.5 gm 07/10/25 12:33 Dextrose 50% 25 Gm/50 Ml Syringe IV PUSH PRN PRN Hypoglycemia Protocol Dicyclomine HCl 20 mg 07/10/25 12:15 Dicyclomine Hcl Inj 20 Mg/2 Ml Vial IM Q6H PRN Abdominal Cramping Enalapril Maleate 40 mg 07/11/25 09:00 Enalapril Maleate 10 Mg Tablet PO Q24H [facility] Glucagon 1 mg 07/10/25 12:33 Glucagon For Inj 1 Mg Vial IM PRN PRN Hypoglycemia Protocol Glucose 15 gm 07/10/25 12:33 Glucose Oral Gel 15 Gm Of Glucse In 37.5 Gm Tube PO PRN PRN Hypoglycemia Protocol Hydrochlorothiazide 25 mg 07/11/25 08:00 Hydrochlorothiazide 25 Mg Tablet PO DAILY@0800 [facility] Cefepime HCl 2 gm/ Sodium 50 mls @ 100 mls/hr 07/10/25 22:00 07/11/25 06:37 Chloride IVPB 100 mls/hr Q8H [facility] Administration Metronidazole 500 mg in 100 mls @ 100 mls/hr 07/10/25 22:00 07/11/25 05:03 Flagyl 500 Mg/Iso Soln 100 Ml IVPB 100 mls/hr Q8H [facility] Administration Dextrose 1,000 mls @ 100 mls/hr 07/10/25 12:33 Dextrose 5% 1,000 Ml IVPB PRN PRN Hypoglycemia Protocol Insulin Aspart 4 - 8 units 07/10/25 12:40 07/10/25 17:22 Insulin Aspart (*Bkc) 100 Units/Ml SUB-Q Not Given TIDWM [facility] Protocol Metoprolol Succinate 200 mg 07/11/25 08:00 Metoprolol Succinate Ext Rel 100 Mg Tabcr PO DAILY@0800 [facility] Morphine Sulfate 2 mg 07/10/25 12:14 Morphine Sulfate (*Crx) 4 Mg/Ml Inj IV PUSH Q4H PRN Pain Rated 7-10 Ondansetron HCl 4 mg 07/10/25 12:14 Ondansetron Inj 4 Mg/2 Ml Vial IV PUSH Q6H PRN Nausea And Vomiting Pantoprazole Sodium 40 mg 07/10/25 12:35 07/10/25 13:00 Pantoprazole Sodium Iv 40 Mg Vial IV PUSH 40 mg QAM [facility] Administration Rosuvastatin Calcium 20 mg 07/10/25 17:00 07/10/25 17:20 Rosuvastatin 20 Mg Tablet PO 20 mg DAILY@1700 [facility] Administration Radiology Results: ITS Impressions Abdomen/Pelvis CT 07/10/25 11:38 IMPRESSION: 1. Long segment colitis. Infectious and/or inflammatory. Labs Labs: Laboratory Results - last 24 hr 07/10/25 07/10/25 07/10/25 10:19 10:20 11:03 WBC 22.7 H RBC 5.94 Hgb 16.7 Hct 49.9 MCV 84.0 MCH 28.1 MCHC 33.5 RDW 14.0 Plt Count 259 MPV 9.4 Immature Gran % (Auto) 0.5 Neut % (Auto) 87.1 H Lymph % (Auto) 6.2 L [place] % (Auto) 5.9 Eos % (Auto) 0.0 Baso % (Auto) 0.3 Lymph # (Auto) 1.40 [place] # (Auto) 1.3 H Eos # (Auto) 0.0 Baso # (Auto) 0.1 Abs Immat Gran (auto) 0.11 H Absolute Neuts (auto) 19.7 H Absolute Nucleated RBC 0.000 Nucleated RBC % 0.0 PT 12.8 INR 0.9 APTT 23.6 Sodium 135 L Potassium 3.5 Chloride 99 Carbon Dioxide 22 Anion Gap 14 H BUN 21 H Creatinine 0.83 Estim Creat Clear Calc 100 Estimated GFR > 60 Glucose 207 H POC Capillary Glucose Lactic Acid 4.1 H* Calcium 9.9 Magnesium 1.7 Total Bilirubin 0.5 AST 39 ALT 57 H Alkaline Phosphatase 53 Total Protein 7.8 Albumin 4.5 Lipase 49 Procalcitonin 0.1 Urine Color Yellow Urine Appearance Clear Urine pH 5.0 Ur Specific [place] 1.031 Urine Protein Negative Urine Glucose (UA) 2+ H Urine Ketones Trace H Ur Blood (Man) Negative Urine Nitrate Negative Urine Bilirubin Negative Urine Urobilinogen 0.2 Leukocyte Esterase Rfl Negative 07/10/25 07/10/25 07/10/25 12:45 13:27 16:34 WBC RBC Hgb Hct MCV MCH MCHC RDW Plt Count MPV Immature Gran % (Auto) Neut % (Auto) Lymph % (Auto) [place] % (Auto) Eos % (Auto) Baso % (Auto) Lymph # (Auto) [place] # (Auto) Eos # (Auto) Baso # (Auto) Abs Immat Gran (auto) Absolute Neuts (auto) Absolute Nucleated RBC Nucleated RBC % PT INR APTT Sodium Potassium Chloride Carbon Dioxide Anion Gap BUN Creatinine Estim Creat Clear Calc Estimated GFR Glucose POC Capillary Glucose 151 H 113 H Lactic Acid 3.2 H Calcium Magnesium Total Bilirubin AST ALT Alkaline Phosphatase Total Protein Albumin Lipase Procalcitonin Urine Color Urine Appearance Urine pH Ur Specific [place] Urine Protein Urine Glucose (UA) Urine Ketones Ur Blood (Man) Urine Nitrate Urine Bilirubin Urine Urobilinogen Leukocyte Esterase Rfl 07/10/25 07/11/25 20:03 04:55 WBC 16.1 H RBC 5.19 Hgb 14.7 Hct 43.8 MCV 84.4 MCH 28.3 MCHC 33.6 RDW 14.0 Plt Count 216 MPV 9.9 Immature Gran % (Auto) 0.6 H Neut % (Auto) 78.4 H Lymph % (Auto) 12.1 L [place] % (Auto) 8.1 Eos % (Auto) 0.5 Baso % (Auto) 0.3 Lymph # (Auto) 1.95 [place] # (Auto) 1.3 H Eos # (Auto) 0.1 Baso # (Auto) 0.1 Abs Immat Gran (auto) 0.09 H Absolute Neuts (auto) 12.7 H Absolute Nucleated RBC 0.000 Nucleated RBC % 0.0 PT INR APTT Sodium 132 L Potassium 3.6 Chloride 99 Carbon Dioxide 26 Anion Gap 7 BUN 10 D Creatinine 0.73 Estim Creat Clear Calc 112 Estimated GFR > 60 Glucose 137 H POC Capillary Glucose 186 H Lactic Acid Calcium 8.9 Magnesium 1.7 Total Bilirubin 0.9 AST 20 ALT 28 Alkaline Phosphatase 46 Total Protein 6.3 Albumin 3.4 L Lipase Procalcitonin Urine Color Urine Appearance Urine pH Ur Specific [place] Urine Protein Urine Glucose (UA) Urine Ketones Ur Blood (Man) Urine Nitrate Urine Bilirubin Urine Urobilinogen Leukocyte Esterase Rfl Quality VTE Prophylaxis VTE prophylaxis: mechanical ordered
[2025-07-11 08:50] VITALS: PULSE 76
[2025-07-11] MEDS: METOPROLOL SUCCINATE EXT REL 100 MG TABCR 200 MG PO (08:50)
[2025-07-11] MEDS: PANTOPRAZOLE SODIUM IV 40 MG VIAL IV PUSH (08:50)
[2025-07-11] MEDS: ENALAPRIL MALEATE 10 MG TABLET 40 MG PO (08:50)
[2025-07-11] MEDS: ASPIRIN 81 MG ENTERIC TABLET PO (08:51)
--- NOTE | 2025-07-11 12:15 | WPDGIPROGNO ---
Progress Note: A&P Assessment and Plan (1) Colitis: Code(s): K52.9 - Noninfective gastroenteritis and colitis, unspecified Status: Acute Assessment and Plan: differential ischemic vs infectious but regardless he is much better wbc trending down lactic acidosis normalized after fluids he can go home with oral abx, pending cultures he will monitor and come back if anything changes also will contact pcp to get colonoscopy in 3-4 weeks (2) Leukocytosis: Code(s): D72.829 - Elevated white blood cell count, unspecified Status: Acute (3) Sepsis: Qualifiers: Sepsis type: sepsis due to unspecified organism Sepsis acute organ dysfunction status: without acute organ dysfunction Qualified Code(s): A41.9 - Sepsis, unspecified organism Code(s): A41.9 - Sepsis, unspecified organism Status: Acute Assessment and Plan: resolved (4) Rectal bleeding: Code(s): K62.5 - Hemorrhage of anus and rectum Status: Inactive (5) Abdominal pain: Code(s): R10.9 - Unspecified abdominal pain Status: Inactive Subjective Date/time seen: 07/11/25 12:15 Interval history: last BM still with some blood but overall improved tolerating liquid diet, pain is almost gone- feeling 100% better Review of Systems Review of Systems: All systems reviewed & are unremarkable except as noted in HPI and below Exam Const: General: comfortable and no acute distress HENMT: Face/Nose/Sinus: Normal nares present Eyes: General: appearance normal, both eyes and all related structures Neck: Neck: no JVD Resp: Auscultation: clear to auscultation bilaterally Cardio: Rate: regular rate Rhythm: regular rhythm GI: Inspection: non-distended GI Palp: Yes Soft to palpation and No Tenderness to palpation present (GI) Auscultation: normal bowel sounds Skin: General skin exam: normal color Neuro: General: gait normal Speech: normal speech Extrem: General: normal to inspection Psych: Mental Status: mental status grossly normal Objective Data Vital Signs Vital Signs: Vital Signs - 24 hr 07/10/25 13:07 07/10/25 14:06 07/10/25 20:00 Temperature 98.7 F Pulse Rate 83 82 Respiratory Rate 19 20 Blood Pressure 146/80 H 157/77 H Pulse Oximetry 97 99 Oxygen Delivery Room Air 07/10/25 20:18 07/11/25 04:59 07/11/25 08:50 Temperature 98.2 F 98.4 F Pulse Rate 75 74 76 Respiratory Rate 18 18 Blood Pressure 151/81 H 142/81 H Pulse Oximetry 97 96 Oxygen Delivery Intake/Output Intake/Output: Intake & Output 07/08/25 07/09/25 07/10/25 07/11/25 23:59 23:59 23:59 23:59 Intake Total 4300 730 Output Total 2 Balance 4300 728 Meds/Results Medications: Active Medications Generic Name Dose Route Start Last Admin Trade Name Freq PRN Reason Stop Dose Admin Acetaminophen 650 mg 07/10/25 12:14 Acetaminophen 325 Mg Tablet PO Q4H PRN Mild Pain (1-3) or Fever Hydrocodone Bitart/Acetaminophen 1 tab 07/10/25 12:14 07/10/25 20:13 Hydrocodone/Acetaminophen (*Crx) 5-325 Mg Tablet PO 1 tab Q4H PRN Administration Moderate Pain (4-6) Amlodipine Besylate 10 mg 07/11/25 08:00 07/11/25 08:51 Amlodipine Besylate 10 Mg Tablet PO 10 mg DAILY@0800 MICHELLE Administration Aspirin 81 mg 07/11/25 09:00 07/11/25 08:51 Aspirin 81 Mg Enteric Tablet PO 81 mg QAM MICHELLE Administration Dextrose 12.5 gm 07/10/25 12:33 Dextrose 50% 25 Gm/50 Ml Syringe IV PUSH PRN PRN Hypoglycemia Protocol Dicyclomine HCl 20 mg 07/10/25 12:15 Dicyclomine Hcl Inj 20 Mg/2 Ml Vial IM Q6H PRN Abdominal Cramping Enalapril Maleate 40 mg 07/11/25 09:00 07/11/25 08:50 Enalapril Maleate 10 Mg Tablet PO 40 mg Q24H MICHELLE Administration Glucagon 1 mg 07/10/25 12:33 Glucagon For Inj 1 Mg Vial IM PRN PRN Hypoglycemia Protocol Glucose 15 gm 07/10/25 12:33 Glucose Oral Gel 15 Gm Of Glucse In 37.5 Gm Tube PO PRN PRN Hypoglycemia Protocol Hydrochlorothiazide 25 mg 07/11/25 08:00 07/11/25 08:51 Hydrochlorothiazide 25 Mg Tablet PO 25 mg DAILY@0800 MICHELLE Administration Cefepime HCl 2 gm/ Sodium 50 mls @ 100 mls/hr 07/10/25 22:00 07/11/25 06:37 Chloride IVPB 100 mls/hr Q8H MICHELLE Administration Metronidazole 500 mg in 100 mls @ 100 mls/hr 07/10/25 22:00 07/11/25 05:03 Flagyl 500 Mg/Iso Soln 100 Ml IVPB 100 mls/hr Q8H MICHELLE Administration Dextrose 1,000 mls @ 100 mls/hr 07/10/25 12:33 Dextrose 5% 1,000 Ml IVPB PRN PRN Hypoglycemia Protocol Insulin Aspart 4 - 8 units 07/10/25 12:40 07/11/25 11:41 Insulin Aspart (*Bkc) 100 Units/Ml SUB-Q Not Given TIDWM [facility] Protocol Metoprolol Succinate 200 mg 07/11/25 08:00 07/11/25 08:50 Metoprolol Succinate Ext Rel 100 Mg Tabcr PO 200 mg DAILY@0800 [facility] Administration Morphine Sulfate 2 mg 07/10/25 12:14 Morphine Sulfate (*Crx) 4 Mg/Ml Inj IV PUSH Q4H PRN Pain Rated 7-10 Ondansetron HCl 4 mg 07/10/25 12:14 Ondansetron Inj 4 Mg/2 Ml Vial IV PUSH Q6H PRN Nausea And Vomiting Pantoprazole Sodium 40 mg 07/10/25 12:35 07/11/25 08:50 Pantoprazole Sodium Iv 40 Mg Vial IV PUSH 40 mg QAM MICHELLE Administration Rosuvastatin Calcium 20 mg 07/10/25 17:00 07/10/25 17:20 Rosuvastatin 20 Mg Tablet PO 20 mg DAILY@1700 [facility] Administration Radiology Results: ITS Impressions Abdomen/Pelvis CT 07/10/25 11:38 IMPRESSION: 1. Long segment colitis. Infectious and/or inflammatory. Labs Labs: Laboratory Results - last 24 hr 07/10/25 07/10/25 07/10/25 10:19 10:20 12:45 WBC RBC Hgb Hct MCV MCH MCHC RDW Plt Count MPV Immature Gran % (Auto) Neut % (Auto) Lymph % (Auto) [place] % (Auto) Eos % (Auto) Baso % (Auto) Lymph # (Auto) [place] # (Auto) Eos # (Auto) Baso # (Auto) Abs Immat Gran (auto) Absolute Neuts (auto) Absolute Nucleated RBC Nucleated RBC % PT 12.8 INR 0.9 APTT 23.6 Sodium Potassium Chloride Carbon Dioxide Anion Gap BUN Creatinine Estim Creat Clear Calc Estimated GFR Glucose POC Capillary Glucose 151 H Lactic Acid Calcium Magnesium 1.7 Total Bilirubin AST ALT Alkaline Phosphatase Total Protein Albumin Procalcitonin 0.1 07/10/25 07/10/25 07/10/25 13:27 16:34 20:03 WBC RBC Hgb Hct MCV MCH MCHC RDW Plt Count MPV Immature Gran % (Auto) Neut % (Auto) Lymph % (Auto) [place] % (Auto) Eos % (Auto) Baso % (Auto) Lymph # (Auto) [place] # (Auto) Eos # (Auto) Baso # (Auto) Abs Immat Gran (auto) Absolute Neuts (auto) Absolute Nucleated RBC Nucleated RBC % PT INR APTT Sodium Potassium Chloride Carbon Dioxide Anion Gap BUN Creatinine Estim Creat Clear Calc Estimated GFR Glucose POC Capillary Glucose 113 H 186 H Lactic Acid 3.2 H Calcium Magnesium Total Bilirubin AST ALT Alkaline Phosphatase Total Protein Albumin Procalcitonin 07/11/25 07/11/25 07/11/25 04:55 07:24 08:10 WBC 16.1 H RBC 5.19 Hgb 14.7 Hct 43.8 MCV 84.4 MCH 28.3 MCHC 33.6 RDW 14.0 Plt Count 216 MPV 9.9 Immature Gran % (Auto) 0.6 H Neut % (Auto) 78.4 H Lymph % (Auto) 12.1 L [place] % (Auto) 8.1 Eos % (Auto) 0.5 Baso % (Auto) 0.3 Lymph # (Auto) 1.95 [place] # (Auto) 1.3 H Eos # (Auto) 0.1 Baso # (Auto) 0.1 Abs Immat Gran (auto) 0.09 H Absolute Neuts (auto) 12.7 H Absolute Nucleated RBC 0.000 Nucleated RBC % 0.0 PT INR APTT Sodium 132 L Potassium 3.6 Chloride 99 Carbon Dioxide 26 Anion Gap 7 BUN 10 D Creatinine 0.73 Estim Creat Clear Calc 112 Estimated GFR > 60 Glucose 137 H POC Capillary Glucose 142 H Lactic Acid 1.3 Calcium 8.9 Magnesium 1.7 Total Bilirubin 0.9 AST 20 ALT 28 Alkaline Phosphatase 46 Total Protein 6.3 Albumin 3.4 L Procalcitonin 07/11/25 11:11 WBC RBC Hgb Hct MCV MCH MCHC RDW Plt Count MPV Immature Gran % (Auto) Neut % (Auto) Lymph % (Auto) [place] % (Auto) Eos % (Auto) Baso % (Auto) Lymph # (Auto) [place] # (Auto) Eos # (Auto) Baso # (Auto) Abs Immat Gran (auto) Absolute Neuts (auto) Absolute Nucleated RBC Nucleated RBC % PT INR APTT Sodium Potassium Chloride Carbon Dioxide Anion Gap BUN Creatinine Estim Creat Clear Calc Estimated GFR Glucose POC Capillary Glucose 138 H Lactic Acid Calcium Magnesium Total Bilirubin AST ALT Alkaline Phosphatase Total Protein Albumin Procalcitonin
[2025-07-11 13:49] VITALS: BP 145/81; PULSE 88; RESP 17; TEMP 37.5; O2SAT 97
--- NOTE | 2025-07-11 14:14 | P.DS_ITS ---
DS: Admitting Diagnosis Discharge Date 07/11/2025 Admitting Diagnosis colitis DS: Discharge Diagnosis Discharge Diagnosis (1) Sepsis: Qualifiers: Sepsis acute organ dysfunction status: without acute organ dysfunction Sepsis type: sepsis due to unspecified organism Qualified Code(s): A41.9 - Sepsis, unspecified organism Code(s): A41.9 - Sepsis, unspecified organism Status: Acute Assessment and Plan: Patient met sepsis criteria. HR greater than 90, WBC greater than 14. Initial lactic 4.1. No hypotension, renal failure, or hypoxia noted. Extremities well perfused on exam. Imaging/workup concerning for colitis. * Lactic acid improving, 4.1 -> 3.2 -> 1.3 * UA not indicative of infection * 2L bolus given in ED, give 3rd L at 100 mL/hr * started on broad spectrum antibiotics for colitis: Cefepime and Flagyl * blood cultures obtained on 07/10, follow * monitor hemodynamic stability * WBC improving, down from 22.7 -> 16.1 (2) Colitis: Code(s): K52.9 - Noninfective gastroenteritis and colitis, unspecified Status: Acute Assessment and Plan: Reports general improvement since arrival with IV fluids and medications in the ED. * CT abd/pelvis: Long segment colitis. Infectious and/or inflammatory. * started on Cefepime + Metronidazole on 07/10, continued inpatient * IV fluids: 2L bolus, now on 100 mL/hr x1L * clear liquid diet * pain medication prn * daily clinical reassessment for improvement * accompanying blood in stool, see below * GI consulted (3) Rectal bleeding: Code(s): K62.5 - Hemorrhage of anus and rectum Status: Inactive Assessment and Plan: Reported rectal bleeding with onset within the last 24 hours. No previous history of melena/hematochezia. Last colonoscopy? Hemoglobin currently stable. Hemodynamically stable. Suspect new rectal bleeding secondary to colitis, however patient has long segment colitis. * check coags * monitor H/H, trasnfuse if <7 * GI consulted (4) DM2 (diabetes mellitus, type 2): Qualifiers: Diabetes mellitus complication status: with hyperglycemia Diabetes mellitus predatory animal exterminator insulin use: without fpc use Qualified Code(s): E11.65 - Type 2 diabetes mellitus with hyperglycemia Code(s): E11.9 - Type 2 diabetes mellitus without complications Status: Chronic Assessment and Plan: - hypoglycemia protocol - POC blood glucose ACHS - home medication: Hold metformin in case of need for contrast - correct regimen ordered - high dose TIDWM, based off BMI (5) HTN (hypertension): Qualifiers: Hypertension type: primary hypertension Qualified Code(s): I10 - Essential (primary) hypertension Code(s): I10 - Essential (primary) hypertension Status: Chronic Assessment and Plan: - chronic, currently 157/89, stable. - continue home medications: Amlodipine, enalapril, hydrochlorothiazide, metoprolol - monitor Plan Diet: clear liquid GI Prophylaxis: pantoprazole IV daily DVT Prophylaxis: SCDs IV fluids: 2L -> 100 mL/hr x1L Lines/Tubes: pIV Code Status: full code DS: Summary Hospital Course Reason for hospitalization: Abdominal Pain, Blood in Stool Hospital Course: 64 y/o M with PMH of HTN, HLD, and DM presents here with abdominal pain and blood in his stool. The patient presents here from a local urgent care on 07/10 for further evaluation of a town pain and blood in his stool. He reports onset of symptoms yesterday (07/09). He describes the abdominal pain as diffuse, cramping/fullness, and nonradiating. Pain was accompanied by diarrhea. He reports since onset he has had approximately 4-5 stools. He describes these as large volume initially but have tapered down to smaller volumes. He reports he then developed bloody diarrhea around 2 a.m. which he described as bright red blood and fibrous. He reports accompanying abdominal fullness. Denies fever, chills, body aches. No prior history of hematochezia/melena. Not on anticoagulation, does take a daily ASA. Has never had a colonoscopy or Cologuard before, has been offered to him by his primary. Denies history of ulcerative colitis or Crohn's. No FH of colon cancer. Initial VS at presentation: 97.6? F, HR 98, R 17, 157/82, and 97% on RA. ED workup showed: WBC 22.7, no anemia, sodium 135, creatinine 0.83 and GFR >60, glucose 207, lactic 4.1, ALT 57, normal lipase, and UA showed 2+ glucose and trace ketones. CT of the abdomen/pelvis showed long segment colitis, infectious and/or inflammatory. Hospital Course: GI consulted for colitis, abdominal pain, rectal bleeding. Likely colitis caused by infectious or ischemic cause, however by the evening of 07/10, the patient already was feeling much better. GI evaluated the patient and recommended discharge the next day if patient continues to feel better as symptoms have overall subsided and patient is otherwise hemodynamically stable. They also recommended that the patient get a colonoscopy in 4 weeks after resolution of colitis. Throughout hospitalization, WBC continued to trend downward and his symptoms continued to improve. By 07/11, symptoms have completely subsided besides improving bloody diarrhea, although this also appears to be improving per patient. Vital signs have remained stable throughout hospitalization and hemoglobin has remained stable as well. No major electrolyte abnormalities. Blood cultures were drawn and are still pending at discharge. Patient is very much wanting to be discharged at this time as all of his symptoms have subsided and he has been cleared by Gastroenterology from their standpoint. Given that the blood culture had not returned, had an in- depth conversation with patient in terms of discharge. Discussed with patient that if the blood culture comes back that he will have to come back to the hospital for IV antibiotics. Will continue to monitor blood cultures over the next few days. Patient stated understanding and was agreeable with discharge at this time. Will instruct him to follow up with his PCP for colonoscopy and he has been given strict return to ED instructions. Patient is amenable to this plan. Plan for discharge at this time. Status at Discharge Functional status at discharge: independent ambulation Overall status at discharge: patient is back to baseline Time Spent with Patient Time attestation: Total time spent providing and/or coordinating discharge services: 35 Exam Const: Other: , male, nontoxic appearance, obese body habitus Resp: Effort & Inspection: normal respiratory effort Auscultation: clear to auscultation bilaterally Cardio: Other: S1-S2 present without murmur, rub, ectopy GI: Other: Abdomen full, currently nontender. Normoactive bowel sounds in all quadrants. Neuro: Other: A&O x4 Psych: Other: Good insight and judgment, very pleasant DS: Data Data Completed and Pending Labs on day of discharge: Labs from last 24 hours 07/11/25 07/11/25 07/11/25 11:11 08:10 07:24 WBC RBC Hgb Hct MCV MCH MCHC RDW Plt Count MPV Immature Gran % (Auto) Neut % (Auto) Lymph % (Auto) [place] % (Auto) Eos % (Auto) Baso % (Auto) Lymph # (Auto) [place] # (Auto) Eos # (Auto) Baso # (Auto) Abs Immat Gran (auto) Absolute Neuts (auto) Absolute Nucleated RBC Nucleated RBC % Sodium Potassium Chloride Carbon Dioxide Anion Gap BUN Creatinine Estim Creat Clear Calc Estimated GFR Glucose POC Capillary Glucose 138 H 142 H Lactic Acid 1.3 Calcium Magnesium Total Bilirubin AST ALT Alkaline Phosphatase Total Protein Albumin 07/11/25 07/10/25 07/10/25 04:55 20:03 16:34 WBC 16.1 H RBC 5.19 Hgb 14.7 Hct 43.8 MCV 84.4 MCH 28.3 MCHC 33.6 RDW 14.0 Plt Count 216 MPV 9.9 Immature Gran % (Auto) 0.6 H Neut % (Auto) 78.4 H Lymph % (Auto) 12.1 L [place] % (Auto) 8.1 Eos % (Auto) 0.5 Baso % (Auto) 0.3 Lymph # (Auto) 1.95 [place] # (Auto) 1.3 H Eos # (Auto) 0.1 Baso # (Auto) 0.1 Abs Immat Gran (auto) 0.09 H Absolute Neuts (auto) 12.7 H Absolute Nucleated RBC 0.000 Nucleated RBC % 0.0 Sodium 132 L Potassium 3.6 Chloride 99 Carbon Dioxide 26 Anion Gap 7 BUN 10 D Creatinine 0.73 Estim Creat Clear Calc 112 Estimated GFR > 60 Glucose 137 H POC Capillary Glucose 186 H 113 H Lactic Acid Calcium 8.9 Magnesium 1.7 Total Bilirubin 0.9 AST 20 ALT 28 Alkaline Phosphatase 46 Total Protein 6.3 Albumin 3.4 L Discharge Plan Discharge Attending physician on discharge: Waqar Briscoe Consulting providers: Prasanna Jackman; Chintan Lizama; Shadi Nava Discharging Clinician: Shadi Nava Anticipated Discharge Date/Time: 07/11/25 13:47 Patient Disposition: Home Activity: as tolerated Diet: regular Discharge Instructions: Discharge disposition: Home Take medications as prescribed. You will be prescribed Flagyl for an additional 7 days for your colitis. Official blood culture has not returned at time of discharge: If the culture returns will receive a phone call to return to the emergency department for IV antibiotics. Return to the emergency department if you develop sudden shortness of breath, chest pain, nausea, vomiting, upset stomach or intractable diarrhea Return to the emergency department if you develop fever greater than 101.5 Follow-up with the primary care physician within 1-2 weeks to schedule a colonoscopy Thank you for choosing [facility] for your healthcare needs Patient Instructions: Antibiotic Form, Low Fiber Diet (DC) Patient Language: Divehi Stand Alone Forms: General Discharge Information Follow-up/Referrals: Vi Meade,Roxy [Other] Discharge Medications: New metronidazole 500 mg tablet 500 mg PO Q8H 7 Days Qty: 21 0RF Continued metformin 500 mg tablet 1,000 mg PO BID enalapril maleate 20 mg tablet 40 mg PO Q24H metoprolol succinate 200 mg tablet extended release 24 hr 200 mg PO DAILY@0800 amlodipine 10 mg tablet 10 mg PO DAILY@0800 hydrochlorothiazide 25 mg tablet 25 mg PO DAILY@0800 rosuvastatin 20 mg tablet 20 mg PO DAILY@1700 Trulicity 4.5 mg/0.5 mL pen injector 4.5 mg SUBCUT WEEKLY aspirin 81 mg tablet 81 mg PO DAILY Date of admission: 07/10/25 12:15 Primary Care Provider: Vi Meade,Roxy Admitting Provider: Bjorn White Attending physician on admission: Bjorn White Condition: Stable Quality VTE Prophylaxis VTE prophylaxis: mechanical ordered
== END 2025-07-11 14:31 | disposition home or self-care (01) ==
LOC: ANHED 12:04 → ANH3MED 07-11 06:26
PROVIDERS: Emergency Medicine; Physician Assistant; Student in an Organized Health Care Education/Training Program; Admitting Provider Internal Medicine; Emergency Provider Emergency Medicine; Visit Provider Internal Medicine
DX: K52.9 Noninfective gastroenteritis and colitis, unspecified (principal); A41.9 Sepsis, unspecified organism; K62.5 Hemorrhage of anus and rectum; E11.65 Type 2 diabetes mellitus with hyperglycemia; Z79.84 Long term (current) use of oral hypoglycemic drugs; Z79.85 Long-term (current) use of injectable non-insulin antidiabetic drugs; E78.5 Hyperlipidemia, unspecified; I10 Essential (primary) hypertension
CPT/HCPCS: 36415; 74177; 80053; 81003; 82948; 83605; 83690; 83735; 84145; 85025; 85610; 85730; 87040; 87045; 87046; 87427; 96361; 96365; 96366; 96367; 96372; 96376; 99285; A9270; G0378; J0500; J0692; J1836; J2470; J7030; J7120; Q9967